=== PATIENT | female | born 1965 | race Caucasian/White ===

== ENCOUNTER → 2020-12-30 | Outpatient (CLI) | payer OTHER ==
[~2020-12-30] MED LIST: ALBU90AE INH; ASPI81TA45 PO; ATOR40TA78 PO; BENA10TA59 PO; CITA20TA9 PO; LEVO100T PO; OMEP20TA62 PO
[2020-12-30 11:41] LABS: ANION GAP 6 mmol/L (5-15); CHLORIDE 110 mmol/L (98-107)
[2020-12-30 11:43] LABS: ALANINE AMINOTRANSFERASE 51 U/L (12-78); ALKALINE PHOSPHATASE 104 U/L (45-117); BILIRUBIN,TOTAL 0.7 mg/dL (0.2-1.0); CREATININE 0.85 mg/dL (0.55-1.02); TOTAL PROTEIN 7.5 g/dL (6.4-8.2)
== END | disposition home or self-care (01) ==
LOC: STAR 10:10
PROVIDERS: ATTEND Orthopaedic Surgery
DX: Z01.818 Encounter for other preprocedural examination (principal); M75.121 Complete rotator cuff tear or rupture of right shoulder, not specified as traumatic; M75.21 Bicipital tendinitis, right shoulder; Z20.822 Contact with and (suspected) exposure to COVID-19
CPT/HCPCS: 80053; 87635; 93005

== ENCOUNTER 2021-01-05 07:21 | Day surgery (SDC) | payer BC, OTHER ==
[~2021-01-05] VITALS: Ht 172.7 cm; Wt 99.0 kg
[~2021-01-05 07:21] MED LIST changes: +BUPIVACAINE/PF 0.25% ONE; +CLINDAMYCIN 150 MG/ML, 6ML ONE
[2021-01-05] MEDS ORDERED: LACTATED RINGERS 1,000 ML IV SCH (08:00)
[2021-01-05] MEDS ORDERED: CHLORHEXIDINE 15 ML UDC MM ONE (08:00)
[2021-01-05] MEDS ORDERED: LIDOCAINE-MPF 1%, 2ML INFIL ONE (08:00)
[2021-01-05] MEDS ORDERED: MIDAZOLAM 1 MG/ML, 2ML ONE (08:07)
[2021-01-05] MEDS ORDERED: FENTANYL PF 250 MCG/5ML ONE (08:07)
[2021-01-05] MEDS ORDERED: SUGAMMADEX 200 MG/2 ML IVPush ONE (09:14)
[2021-01-05] MEDS ORDERED: ONDANSETRON 2MG/ML, 2ML ONE (09:14)
[2021-01-05] MEDS ORDERED: SUCCINYLCHOLINE 20 MG/ML, 10ML ONE (09:14)
[2021-01-05] MEDS ORDERED: DEXAMETHASONE 4 MG/ML, 1ML ONE (09:14)
[2021-01-05] MEDS ORDERED: ROCURONIUM 10MG/ML,5ML ONE (09:14)
[2021-01-05] MEDS ORDERED: KETOROLAC 30 MG/1 ML ONE (09:14)
[2021-01-05] MEDS ORDERED: CEFAZOLIN 1,000 MG ONE (09:14)
[2021-01-05] MEDS ORDERED: PROPOFOL 10 MG/ML, 20ML ONE (09:14)
[2021-01-05] MEDS ORDERED: ALBUTEROL SULFATE 2.5 MG/3 ML NPPB PRN (10:00)
[2021-01-05] MEDS ORDERED: PROMETHAZINE 25 MG/ML, 1ML IV PRN (10:00)
[2021-01-05] MEDS ORDERED: OXYcodone 5 MG/5 ML ORAL.SOL UDC PO PRN (10:00)
[2021-01-05] MEDS ORDERED: FENTANYL PF 100 MCG/2ML IV PRN (10:00)
[2021-01-05] MEDS ORDERED: MEPERIDINE/PF 25MG/0.5ML IVPush PRN (10:00)
[2021-01-05] MEDS ORDERED: DIAZEPAM 5 MG/ML, 2ML IV PRN ×2 (10:00)
[2021-01-05] MEDS ORDERED: KETOROLAC 30 MG/1 ML IV PRN (10:00)
[2021-01-05] MEDS ORDERED: HYDROmorphone 1 MG/ML, 1ML INJ IV PRN (10:00)
[2021-01-05] MEDS ORDERED: LABETALOL 5MG/ML, 20ML IV PRN (10:00)
[2021-01-05] MEDS ORDERED: METOCLOPRAMIDE 5 MG/ML, 2ML IV PRN (10:00)
[2021-01-05] MEDS ORDERED: hydrALAzine 20 MG/ML, 1ML IV PRN (10:00)
[2021-01-05] MEDS ORDERED: ONDANSETRON 2MG/ML, 2ML IVPush PRN (10:00)
== END 2021-01-05 12:40 | disposition home or self-care (01) ==
LOC: OUT 07:21
PROVIDERS: ATTEND Orthopaedic Surgery
DX: S46.011A Strain of muscle(s) and tendon(s) of the rotator cuff of right shoulder, initial encounter (principal); S43.431A Superior glenoid labrum lesion of right shoulder, initial encounter; M75.21 Bicipital tendinitis, right shoulder; M65.811 Other synovitis and tenosynovitis, right shoulder; M75.41 Impingement syndrome of right shoulder; M75.51 Bursitis of right shoulder; M25.711 Osteophyte, right shoulder; G89.18 Other acute postprocedural pain; I10 Essential (primary) hypertension; K21.9 Gastro-esophageal reflux disease without esophagitis; E66.9 Obesity, unspecified; J45.909 Unspecified asthma, uncomplicated; G47.33 Obstructive sleep apnea (adult) (pediatric); Z79.82 Long term (current) use of aspirin; Z79.890 Hormone replacement therapy; Z79.899 Other long term (current) drug therapy; Z88.0 Allergy status to penicillin; X58.XXXA Exposure to other specified factors, initial encounter; Y93.89 Activity, other specified; Y92.89 Other specified places as the place of occurrence of the external cause; Y99.8 Other external cause status
CPT/HCPCS: 23430; 29823; 29826; 64415; C1713; J0330; J0690; J1100; J1885; J2250; J2405; J2704; J3010; J7120